=== PATIENT | female | born 1950 | race Caucasian/White ===

== ENCOUNTER 2021-05-13 20:31 | Observation (INO) ==
[2021-05-13] MEDS ORDERED: Aspirin 81 MG TAB.CHEW PO ONE (21:10)
[2021-05-13 21:26] LABS: Basophils % 0.4 %; Eosinophils # 0.2 K/mcL (0.0-0.6); Eosinophils % 2.2 %; Hematocrit 45.6 % (35.3-44.9); Hemoglobin 14.7 g/dL (11.5-15.4); Immature Granulocytes % 0.6 % (0-4); Lymphocytes # 1.9 K/mcL (0.6-4.6); Lymphocytes % 27.5 %; Mean Corpuscular HGB Conc 32.2 g/dL (31.6-35.5); Mean Corpuscular Hemoglobin 28.7 pg (28.0-33.3); Mean Corpuscular Volume 89.1 fL (83.0-100.0); Mean Platelet Volume 11.7 fL (9.4-12.4); Monocytes # 0.6 K/mcL (0.0-1.3); Monocytes % 9.4 %; Platelet Count 164 K/mcL (140-400); Red Blood Count 5.12 M/mcL (3.82-4.97); Red Cell Distribution Width 14.6 % (11.5-14.5); Segmented Neutrophils % 59.9 %; White Blood Count 6.7 K/mcL (4.3-11.1)
[2021-05-13 21:33] LABS: INR 1.3; Prothrombin Time 14.5 Seconds (9.4-12.1)
[2021-05-13 21:45] LABS: BUN/Creatinine Ratio 20 (6-26); Blood Urea Nitrogen 18 mg/dL (8-23); Calcium 9.7 mg/dL (8.6-10.3); Carbon Dioxide 21 mEq/L (23-29); Chloride 108 mEq/L (98-107); Glucose 105 mg/dL (70-105); Osmolality,Calculated 294 (280-300); Potassium 4.1 mEq/L (3.5-5.1); Sodium 141 mEq/L (136-145); eGFR For African Americans > 60 (> 60); eGFR For Non-African Americans > 60 (> 60)
[2021-05-13 21:46] LABS: Troponin I < 0.03 ng/mL (< 0.04)
[2021-05-13] MEDS: DilTIAZem 50 MG/50 ML IV.SOLN IVC SCH (22:01)
[2021-05-13] MEDS ORDERED: *HR* Heparin 5,000 UNIT/ML VIAL IVP PRN ×2 (22:57)
[2021-05-13] MEDS ORDERED: Perflutren Lipid Microsphere 1.3 ML in 0.9 % Sodium Chloride 8.7 ML IVP PRN (22:58)
[2021-05-13] MEDS ORDERED: Heparin 25,000UNIT/250ML 1/2NS 25,000 UNIT/250 ML IV.SOLN IVC SCH (23:00)
[2021-05-13] MEDS ORDERED: Ondansetron 4 MG/2 ML VIAL IVP PRN (23:12)
[2021-05-13] MEDS ORDERED: Naloxone 0.4 MG/ML INJ IVP PRN (23:12)
[2021-05-13] MEDS ORDERED: Acetaminophen 325 MG TABLET PO PRN (23:12)
[2021-05-13] MEDS ORDERED: D5% in Water 1,000 ML IVC PRN (23:16)
[2021-05-13] MEDS ORDERED: *HR* Dextrose 50 % in Water (Vial) 50 ML VIAL IVP PRN (23:16)
[2021-05-13] MEDS ORDERED: Dextrose Gel 15 GM/37.5 ML TUBE PO PRN ×2 (23:16)
[2021-05-13] MEDS ORDERED: Insulin LISPRO 300 UNITS/3 ML VIAL SUBQ SCH (23:30)
[2021-05-13] MEDS ORDERED: *HR* Metoprolol 5 MG/5 ML VIAL IVP ONE (23:32)
[2021-05-13] MEDS ORDERED: Isovue-370 500 ML BOTTLE IVP ONE (23:36)
[2021-05-14 00:16] LABS: Hematocrit 42.5 % (35.3-44.9); Hemoglobin 14.2 g/dL (11.5-15.4); Mean Corpuscular HGB Conc 33.4 g/dL (31.6-35.5); Mean Corpuscular Hemoglobin 29.5 pg (28.0-33.3); Mean Corpuscular Volume 88.2 fL (83.0-100.0); Mean Platelet Volume 11.7 fL (9.4-12.4); Platelet Count 168 K/mcL (140-400); Red Blood Count 4.82 M/mcL (3.82-4.97); Red Cell Distribution Width 14.6 % (11.5-14.5); White Blood Count 6.9 K/mcL (4.3-11.1)
[2021-05-14] MEDS ORDERED: Nitroglycerin 0.4 MG TAB.SUBL SL PRN (00:32)
[2021-05-14] MEDS ORDERED: Morphine Sulfate 2 MG/ML SYRINGE IVP PRN (00:33)
[2021-05-14] MEDS: DilTIAZem 50 MG/50 ML IV.SOLN IVC SCH (03:00)
[2021-05-14 03:40] LABS: Hematocrit 41.7 % (35.3-44.9); Hemoglobin 13.9 g/dL (11.5-15.4); Mean Corpuscular HGB Conc 33.3 g/dL (31.6-35.5); Mean Corpuscular Hemoglobin 29.5 pg (28.0-33.3); Mean Corpuscular Volume 88.5 fL (83.0-100.0); Mean Platelet Volume 12.1 fL (9.4-12.4); Platelet Count 162 K/mcL (140-400); Red Blood Count 4.71 M/mcL (3.82-4.97); Red Cell Distribution Width 14.5 % (11.5-14.5); White Blood Count 6.6 K/mcL (4.3-11.1)
[2021-05-14 04:05] LABS: BUN/Creatinine Ratio 19 (6-26); Blood Urea Nitrogen 15 mg/dL (8-23); Calcium 9.4 mg/dL (8.6-10.3); Carbon Dioxide 21 mEq/L (23-29); Chloride 107 mEq/L (98-107); Chol/HDL Ratio 4.3 (0-4.9); Cholesterol 139 mg/dL (< 200); Glucose 101 mg/dL (70-105); HDL Cholesterol 32 mg/dL (40-59); LDL Cholesterol,Calculated 81 mg/dL (< 100); Magnesium 1.5 mg/dL (1.6-2.6); Osmolality,Calculated 291 (280-300); Potassium 3.7 mEq/L (3.5-5.1); Sodium 140 mEq/L (136-145); Triglycerides 130 mg/dL (< 150); eGFR For African Americans > 60 (> 60); eGFR For Non-African Americans > 60 (> 60)
[2021-05-14 04:10] LABS: Estimated Average Glucose 146 mg/dl; Hemoglobin A1C 6.7 %
[2021-05-14] MEDS ORDERED: *HR* Metoprolol 5 MG/5 ML VIAL IVP ONE ×2 (04:20→09:55)
[2021-05-14] MEDS ORDERED: Melatonin 3 MG TABLET PO ONE (04:20)
[2021-05-14] MEDS: Insulin LISPRO 300 UNITS/3 ML VIAL SUBQ SCH ×2 (07:05→11:27)
[2021-05-14] MEDS ORDERED: amLODIPine 5 MG TABLET PO SCH (09:00)
[2021-05-14] MEDS ORDERED: lisinopriL 20 MG TABLET PO SCH (09:00)
[2021-05-14] MEDS ORDERED: DilTIAZem CD (24hr) 120 MG CAP.ER.24H PO SCH (09:00)
[2021-05-14] MEDS ORDERED: Magnesium Oxide 400 MG TABLET PO SCH (09:00)
[2021-05-14] MEDS ORDERED: Aspirin Enteric Coated 81 MG Tablet PO SCH (09:00)
[2021-05-14] MEDS ORDERED: carvediloL 6.25 MG TABLET PO SCH (09:00)
[2021-05-14 10:59] LABS: INR 1.3; Prothrombin Time 14.9 Seconds (9.4-12.1)
[2021-05-14 15:25] VITALS: BP 115/66; PULSE 86; TEMP 98.2; O2SAT 93
[2021-05-14] MEDS ORDERED: Warfarin perPT PO PRN (18:00)
[2021-05-14] MEDS ORDERED: *HR* Warfarin 4 MG TABLET PO ONE (18:00)
== END 2021-05-14 16:17 | disposition home or self-care (01) ==
LOC: 2ANU 20:31 → EMEROOARM 20:31 → 2ANU 23:28
PROVIDERS: ADMIT Internal Medicine; ATTEND Internal Medicine

== ENCOUNTER 2021-10-02 16:40 | Inpatient (IN) ==
[2021-10-02 18:05] LABS: INR 3.1; Prothrombin Time 34.8 Seconds (9.4-12.1)
[2021-10-02 18:07] LABS: Basophils % 0.2 %; Eosinophils # 0.1 K/mcL (0.0-0.6); Eosinophils % 0.4 %; Hematocrit 43.5 % (35.3-44.9); Immature Granulocytes % 0.5 % (0-4); Lymphocytes # 0.5 K/mcL (0.6-4.6); Lymphocytes % 3.9 %; Mean Corpuscular HGB Conc 32.2 g/dL (31.6-35.5); Mean Corpuscular Hemoglobin 29.2 pg (28.0-33.3); Mean Corpuscular Volume 90.6 fL (83.0-100.0); Mean Platelet Volume 12.4 fL (9.4-12.4); Monocytes # 0.6 K/mcL (0.0-1.3); Monocytes % 5.4 %; Neutrophils # 10.7 K/mcL (1.6-8.9); Platelet Count 144 K/mcL (140-400); Red Cell Distribution Width 14.5 % (11.5-14.5); Segmented Neutrophils % 89.6 %; White Blood Count 11.9 K/mcL (4.3-11.1)
[2021-10-02 18:08] LABS: Activated Partial Thrombo Time 38.2 Seconds (26.0-36.0)
[2021-10-02 18:26] LABS: Alanine Aminotransferase 11 Units/L (7-52); Albumin 4.3 g/dL (3.5-5.7); Albumin/Globulin Ratio 1.6 (1.1-2.2); Alkaline Phosphatase 56 Units/L (34-104); Aspartate Amino Transferase 25 Units/L (13-39); BUN/Creatinine Ratio 16 (6-26); Bilirubin,Indirect 0.6 mg/dL (0.0-1.0); Bilirubin,Total 0.6 mg/dL (0.3-1.0); Blood Urea Nitrogen 15 mg/dL (8-23); Calcium 9.2 mg/dL (8.6-10.3); Carbon Dioxide 25 mEq/L (23-29); Chloride 101 mEq/L (98-107); Ethanol < 10 mg/dL (Less than 10); Globulin 2.7 g/dL (2.4-3.5); Glucose 171 mg/dL (70-105); Osmolality,Calculated 285 (280-300); Sodium 135 mEq/L (136-145); Troponin I 2.51 ng/mL (< 0.04); eGFR For African Americans > 60 (> 60); eGFR For Non-African Americans > 60 (> 60)
[2021-10-02] MEDS ORDERED: Isovue-370 500 ML BOTTLE IVP ONE (20:45)
[2021-10-02] MEDS ORDERED: Ketorolac 30 MG/ML VIAL IM ONE (21:18)
[2021-10-02] MEDS ORDERED: Ketorolac 30 MG/ML VIAL IVP ONE (21:31)
[2021-10-02 21:45] LABS: Bacteria,Urine Few per hpf (None-Few); Bilirubin,Urine Negative (Negative); Blood,Urine Negative (Negative); Clarity,Urine Clear (Clear); Color,Urine Colorless (Yellow); Glucose,Urine (UA) Normal (Normal); Hyaline Casts,Urine Few per lpf (None Seen); Ketones,Urine Negative (Negative); Leukocyte Esterase,Urine Trace (Negative); Nitrite,Urine Negative (Negative); PH,Urine 5.5 pH Units (5.0-8.0); Protein,Urine Negative (Neg-Trace); RBC,Urine 0-3 per hpf (0-3); Specific Gravity,Urine 1.015 (1.010-1.025); Urobilinogen,Urine Normal (Normal)
[2021-10-02 21:56] LABS: Amphetamine Screen,Urine Negative ng/mL (Cutoff=1000); Barbiturate Screen,Urine Negative ng/mL (Cutoff=200); Benzodiazepines Screen,Urine Negative ng/mL (Cutoff=200); Cannabinoid Screen,Urine Negative ng/mL (Cutoff = 50); Cocaine Screen,Urine Negative ng/mL (Cutoff= 300); Opiate Screen,Urine Positive ng/mL (Cutoff=300); Phencyclidine Screen,Urine Negative ng/mL (Cutoff=25)
[2021-10-02 21:56] LABS: Influenza A PCR Negative (Negative); Influenza B PCR Negative (Negative); Resp. Syncytial Virus PCR Negative (Negative); SARS-CoV-2 by PCR (In House) Negative (Negative)
[2021-10-03] MEDS ORDERED: Naloxone 0.4 MG/ML INJ IVP PRN (00:40)
[2021-10-03] MEDS ORDERED: Ondansetron 4 MG/2 ML VIAL IVP PRN (00:40)
[2021-10-03] MEDS ORDERED: Melatonin 3 MG TABLET PO PRN (00:40)
[2021-10-03] MEDS ORDERED: *HR* Heparin 5,000 UNIT/ML VIAL IVP PRN ×2 (00:48)
[2021-10-03] MEDS ORDERED: Heparin 25,000 UNIT/250 ML 25,000 UNIT/250 ML IV.SOLN IVC SCH (01:00)
[2021-10-03] MEDS ORDERED: Perflutren Lipid Microsphere 1.3 ML in 0.9 % Sodium Chloride 8.7 ML IVP PRN ×2 (04:38→13:08)
[2021-10-03] MEDS ORDERED: *HR* Dextrose 50 % in Water (Syg) 50 ML SYRINGE IVP PRN (04:59)
[2021-10-03] MEDS ORDERED: D5% in Water 1,000 ML IVC PRN (04:59)
[2021-10-03] MEDS ORDERED: Dextrose Gel 15 GM/37.5 ML TUBE PO PRN ×2 (04:59)
[2021-10-03 05:22] LABS: Basophils % 0.3 %; Eosinophils # 0.2 K/mcL (0.0-0.6); Eosinophils % 2.2 %; Hemoglobin 13.1 g/dL (11.5-15.4); Immature Granulocytes % 0.5 % (0-4); Lymphocytes # 0.8 K/mcL (0.6-4.6); Lymphocytes % 9.9 %; Mean Corpuscular HGB Conc 32.8 g/dL (31.6-35.5); Mean Corpuscular Hemoglobin 29.6 pg (28.0-33.3); Mean Corpuscular Volume 90.5 fL (83.0-100.0); Mean Platelet Volume 12.1 fL (9.4-12.4); Monocytes # 0.5 K/mcL (0.0-1.3); Monocytes % 6.5 %; Neutrophils # 6.1 K/mcL (1.6-8.9); Platelet Count 111 K/mcL (140-400); Red Blood Count 4.42 M/mcL (3.82-4.97); Red Cell Distribution Width 14.6 % (11.5-14.5); Segmented Neutrophils % 80.6 %; White Blood Count 7.6 K/mcL (4.3-11.1)
[2021-10-03 05:48] LABS: Alanine Aminotransferase 11 Units/L (7-52); Albumin 3.9 g/dL (3.5-5.7); Albumin/Globulin Ratio 1.8 (1.1-2.2); Alkaline Phosphatase 54 Units/L (34-104); Aspartate Amino Transferase 20 Units/L (13-39); BUN/Creatinine Ratio 15 (6-26); Bilirubin,Total 0.6 mg/dL (0.3-1.0); Blood Urea Nitrogen 15 mg/dL (8-23); Calcium 9.1 mg/dL (8.6-10.3); Carbon Dioxide 28 mEq/L (23-29); Chloride 102 mEq/L (98-107); Globulin 2.2 g/dL (2.4-3.5); Glucose 102 mg/dL (70-105); Magnesium 1.7 mg/dL (1.6-2.6); Osmolality,Calculated 287 (280-300); Phosphorous 3.7 mg/dL (2.7-4.5); Potassium 3.7 mEq/L (3.5-5.1); Sodium 138 mEq/L (136-145); Total Protein 6.1 g/dL (6.4-8.9); Troponin I 2.05 ng/mL (< 0.04); eGFR For African Americans > 60 (> 60); eGFR For Non-African Americans 57 (> 60)
[2021-10-03] MEDS: Insulin LISPRO 300 UNITS/3 ML VIAL SUBQ SCH ×3 (05:50→18:05)
[2021-10-03 09:28] LABS: Prothrombin Time 44.1 Seconds (9.4-12.1)
[2021-10-03] MEDS: Acetaminophen 325 MG TABLET PO PRN ×2 (11:43→18:36)
[2021-10-03] MEDS: carvediloL 6.25 MG TABLET PO SCH (18:06)
[2021-10-03] MEDS ORDERED: *HR* LORazepam 0.5 MG TABLET PO PRN (18:12)
[2021-10-03] MEDS: Magnesium Oxide 400 MG TABLET PO SCH (20:08)
[2021-10-03] MEDS ORDERED: *HR* Metoprolol 5 MG/5 ML VIAL IVP ONE ×2 (20:41→21:54)
[2021-10-03] MEDS: DilTIAZem 50 MG/50 ML IV.SOLN IVC SCH (23:35)
[2021-10-04] MEDS ORDERED: DilTIAZem CD (24hr) 120 MG CAP.ER.24H PO SCH ×2 (01:53→09:00)
[2021-10-04] MEDS ORDERED: *HR* Metoprolol 5 MG/5 ML VIAL IVP ONE (02:11)
[2021-10-04] MEDS ORDERED: 0.9 % Sodium Chloride 1,000 ML IV ONE (02:18)
[2021-10-04] MEDS: Insulin LISPRO 300 UNITS/3 ML VIAL SUBQ SCH ×3 (02:54→21:42)
[2021-10-04] MEDS: DilTIAZem 50 MG/50 ML IV.SOLN IVC SCH (02:55)
[2021-10-04] MEDS: Acetaminophen 325 MG TABLET PO PRN ×2 (04:43→17:02)
[2021-10-04 04:57] LABS: Hematocrit 39.6 % (35.3-44.9); Hemoglobin 12.4 g/dL (11.5-15.4); Immature Platelets 7.4 % (1.1-6.1); Mean Corpuscular HGB Conc 31.3 g/dL (31.6-35.5); Mean Corpuscular Hemoglobin 28.9 pg (28.0-33.3); Mean Corpuscular Volume 92.3 fL (83.0-100.0); Mean Platelet Volume 11.9 fL (9.4-12.4); Red Blood Count 4.29 M/mcL (3.82-4.97); Red Cell Distribution Width 14.6 % (11.5-14.5); White Blood Count 5.6 K/mcL (4.3-11.1)
[2021-10-04 05:29] LABS: BUN/Creatinine Ratio 17 (6-26); Blood Urea Nitrogen 13 mg/dL (8-23); Calcium 8.3 mg/dL (8.6-10.3); Carbon Dioxide 28 mEq/L (23-29); Chloride 104 mEq/L (98-107); Glucose 117 mg/dL (70-105); Osmolality,Calculated 287 (280-300); Potassium 3.7 mEq/L (3.5-5.1); Sodium 138 mEq/L (136-145); Troponin I 1.12 ng/mL (< 0.04); eGFR For African Americans > 60 (> 60); eGFR For Non-African Americans > 60 (> 60)
[2021-10-04] MEDS: carvediloL 6.25 MG TABLET PO SCH (08:54)
[2021-10-04] MEDS: lisinopriL 20 MG TABLET PO SCH (08:54)
[2021-10-04] MEDS: Magnesium Oxide 400 MG TABLET PO SCH ×3 (08:55→20:28)
[2021-10-04] MEDS: Furosemide 20 MG TABLET PO SCH (08:55)
[2021-10-04 09:28] LABS: INR 3.4; Prothrombin Time 37.8 Seconds (9.4-12.1)
[2021-10-04] MEDS ORDERED: Insulin LISPRO 300 UNITS/3 ML VIAL SUBQ SCH ×2 (17:00→21:00)
[2021-10-04] MEDS ORDERED: SUMAtriptan 6 MG/0.5 ML SQ PRN (17:06)
[2021-10-04] MEDS ORDERED: Morphine Sulfate 2 MG/ML SYRINGE IVP PRN (17:07)
[2021-10-04] MEDS: Metoprolol 100 MG TABLET PO SCH (20:28)
[2021-10-05] MEDS: *HR* HYDROcodone/Acet 5/325 mg TABLET PO PRN (03:09)
[2021-10-05 04:07] LABS: Hematocrit 37.6 % (35.3-44.9); Hemoglobin 12.1 g/dL (11.5-15.4); Mean Corpuscular HGB Conc 32.2 g/dL (31.6-35.5); Mean Corpuscular Hemoglobin 29.7 pg (28.0-33.3); Mean Corpuscular Volume 92.4 fL (83.0-100.0); Platelet Count 113 K/mcL (140-400); Red Blood Count 4.07 M/mcL (3.82-4.97); Red Cell Distribution Width 14.4 % (11.5-14.5); White Blood Count 5.6 K/mcL (4.3-11.1)
[2021-10-05 04:14] LABS: INR 2.4; Prothrombin Time 26.6 Seconds (9.4-12.1)
[2021-10-05 04:28] LABS: BUN/Creatinine Ratio 20 (6-26); Blood Urea Nitrogen 18 mg/dL (8-23); Calcium 8.5 mg/dL (8.6-10.3); Carbon Dioxide 26 mEq/L (23-29); Chloride 101 mEq/L (98-107); Glucose 141 mg/dL (70-105); Osmolality,Calculated 282 (280-300); Potassium 3.7 mEq/L (3.5-5.1); Sodium 134 mEq/L (136-145); eGFR For African Americans > 60 (> 60); eGFR For Non-African Americans > 60 (> 60)
[2021-10-05] MEDS: Furosemide 20 MG TABLET PO SCH (08:35)
[2021-10-05] MEDS: lisinopriL 20 MG TABLET PO SCH (08:35)
[2021-10-05] MEDS: Metoprolol 100 MG TABLET PO SCH ×2 (08:36→20:03)
[2021-10-05] MEDS: Magnesium Oxide 400 MG TABLET PO SCH ×3 (08:36→20:01)
[2021-10-05] MEDS: Isosorbide MONOnitrate (24 HR) 30 MG TAB.ER.24H PO SCH (13:55)
[2021-10-05] MEDS: Insulin LISPRO 300 UNITS/3 ML VIAL SUBQ SCH (20:17)
[2021-10-06] MEDS: *HR* HYDROcodone/Acet 5/325 mg TABLET PO PRN ×2 (02:18→19:38)
[2021-10-06 05:51] LABS: Hematocrit 35.7 % (35.3-44.9); Hemoglobin 11.4 g/dL (11.5-15.4); Mean Corpuscular HGB Conc 31.9 g/dL (31.6-35.5); Mean Corpuscular Hemoglobin 28.9 pg (28.0-33.3); Mean Corpuscular Volume 90.6 fL (83.0-100.0); Mean Platelet Volume 12.1 fL (9.4-12.4); Platelet Count 116 K/mcL (140-400); Red Blood Count 3.94 M/mcL (3.82-4.97); White Blood Count 5.5 K/mcL (4.3-11.1)
[2021-10-06 05:57] LABS: INR 1.7; Prothrombin Time 19.1 Seconds (9.4-12.1)
[2021-10-06 06:10] LABS: BUN/Creatinine Ratio 15 (6-26); Blood Urea Nitrogen 12 mg/dL (8-23); Calcium 8.6 mg/dL (8.6-10.3); Carbon Dioxide 32 mEq/L (23-29); Chloride 100 mEq/L (98-107); Glucose 122 mg/dL (70-105); Osmolality,Calculated 285 (280-300); Potassium 3.9 mEq/L (3.5-5.1); Sodium 137 mEq/L (136-145); eGFR For African Americans > 60 (> 60); eGFR For Non-African Americans > 60 (> 60)
[2021-10-06] MEDS: Magnesium Oxide 400 MG TABLET PO SCH ×3 (08:35→23:06)
[2021-10-06] MEDS: Isosorbide MONOnitrate (24 HR) 30 MG TAB.ER.24H PO SCH (08:36)
[2021-10-06] MEDS: Aspirin 81 MG TAB.CHEW PO SCH (08:36)
[2021-10-06] MEDS: lisinopriL 20 MG TABLET PO SCH (08:36)
[2021-10-06] MEDS: Metoprolol 100 MG TABLET PO SCH ×2 (08:36→23:07)
[2021-10-06] MEDS: Furosemide 20 MG TABLET PO SCH (08:36)
[2021-10-06] MEDS: Furosemide 20 MG/2 ML VIAL IVP SCH (20:29)
[2021-10-06] MEDS: Insulin LISPRO 300 UNITS/3 ML VIAL SUBQ SCH (23:07)
[2021-10-07] MEDS: Acetaminophen 325 MG TABLET PO PRN (05:51)
[2021-10-07 06:07] LABS: Hematocrit 40.2 % (35.3-44.9); Hemoglobin 13.6 g/dL (11.5-15.4); Immature Platelets 8.6 % (1.1-6.1); Mean Corpuscular HGB Conc 33.8 g/dL (31.6-35.5); Mean Corpuscular Hemoglobin 29.9 pg (28.0-33.3); Mean Corpuscular Volume 88.4 fL (83.0-100.0); Mean Platelet Volume 11.9 fL (9.4-12.4); Red Blood Count 4.55 M/mcL (3.82-4.97); Red Cell Distribution Width 13.9 % (11.5-14.5); White Blood Count 6.5 K/mcL (4.3-11.1)
[2021-10-07 06:11] LABS: INR 1.4; Prothrombin Time 15.2 Seconds (9.4-12.1)
[2021-10-07 06:25] LABS: BUN/Creatinine Ratio 13 (6-26); Blood Urea Nitrogen 11 mg/dL (8-23); Calcium 9.3 mg/dL (8.6-10.3); Carbon Dioxide 32 mEq/L (23-29); Chloride 98 mEq/L (98-107); Glucose 143 mg/dL (70-105); Osmolality,Calculated 290 (280-300); Potassium 3.4 mEq/L (3.5-5.1); Sodium 139 mEq/L (136-145); eGFR For African Americans > 60 (> 60); eGFR For Non-African Americans > 60 (> 60)
[2021-10-07] MEDS: Isosorbide MONOnitrate (24 HR) 30 MG TAB.ER.24H PO SCH (08:29)
[2021-10-07] MEDS: Aspirin 81 MG TAB.CHEW PO SCH (08:29)
[2021-10-07] MEDS: Metoprolol 100 MG TABLET PO SCH ×2 (08:29→21:11)
[2021-10-07] MEDS: Magnesium Oxide 400 MG TABLET PO SCH (08:29)
[2021-10-07] MEDS: lisinopriL 20 MG TABLET PO SCH (08:31)
[2021-10-07] MEDS: Furosemide 20 MG/2 ML VIAL IVP SCH ×2 (09:15→21:11)
[2021-10-07] MEDS ORDERED: Acetaminophen 325 MG TABLET PO PRN (11:50)
[2021-10-07] MEDS: *HR* Enoxaparin 80 MG/0.8 ML SYRINGE SQ SCH ×2 (11:59→21:11)
[2021-10-07 12:05] LABS: Magnesium 1.6 mg/dL (1.6-2.6)
[2021-10-07] MEDS: Cefuroxime PO 500 MG TABLET PO SCH ×2 (16:23→21:10)
[2021-10-07] MEDS ORDERED: *HR* Warfarin 4 MG TABLET PO ONE (18:00)
[2021-10-07] MEDS ORDERED: Warfarin perPT PO PRN (18:00)
[2021-10-07] MEDS: Insulin LISPRO 300 UNITS/3 ML VIAL SUBQ SCH (23:40)
[2021-10-08] MEDS: Cefuroxime PO 500 MG TABLET PO SCH ×2 (07:55→20:35)
[2021-10-08] MEDS: lisinopriL 20 MG TABLET PO SCH (07:55)
[2021-10-08] MEDS: Aspirin 81 MG TAB.CHEW PO SCH (07:55)
[2021-10-08] MEDS: Metoprolol 100 MG TABLET PO SCH ×2 (07:55→21:43)
[2021-10-08] MEDS: Furosemide 20 MG/2 ML VIAL IVP SCH ×2 (07:56→20:36)
[2021-10-08] MEDS: Isosorbide MONOnitrate (24 HR) 30 MG TAB.ER.24H PO SCH (07:56)
[2021-10-08] MEDS ORDERED: *HR* Metoprolol 5 MG/5 ML VIAL IVP ONE ×2 (08:05→20:24)
[2021-10-08] MEDS: *HR* Enoxaparin 80 MG/0.8 ML SYRINGE SQ SCH ×2 (08:19→20:36)
[2021-10-08] MEDS ORDERED: Magnesium Sulfate 1 GM/102 ML PIGGYBACK IVPB ONE ×2 (08:26→09:47)
[2021-10-08 09:03] LABS: Hematocrit 41.3 % (35.3-44.9); Hemoglobin 13.7 g/dL (11.5-15.4); Mean Corpuscular HGB Conc 33.2 g/dL (31.6-35.5); Mean Corpuscular Hemoglobin 29.1 pg (28.0-33.3); Mean Corpuscular Volume 87.9 fL (83.0-100.0); Mean Platelet Volume 12.1 fL (9.4-12.4); Platelet Count 171 K/mcL (140-400); Red Cell Distribution Width 14.3 % (11.5-14.5); White Blood Count 8.4 K/mcL (4.3-11.1)
[2021-10-08 09:07] LABS: INR 1.3; Prothrombin Time 14.5 Seconds (9.4-12.1)
[2021-10-08 09:30] LABS: BUN/Creatinine Ratio 14 (6-26); Blood Urea Nitrogen 11 mg/dL (8-23); Calcium 7.1 mg/dL (8.6-10.3); Carbon Dioxide 28 mEq/L (23-29); Chloride 105 mEq/L (98-107); Glucose 155 mg/dL (70-105); Magnesium 1.3 mg/dL (1.6-2.6); Osmolality,Calculated 293 (280-300); Potassium 2.5 mEq/L (3.5-5.1); Sodium 140 mEq/L (136-145); eGFR For African Americans > 60 (> 60); eGFR For Non-African Americans > 60 (> 60)
[2021-10-08] MEDS ORDERED: Potassium Phosphate 44 MEQ in 0.9 % Sodium Chloride 250 ML IVPB ONE (09:47)
[2021-10-08] MEDS: DilTIAZem 50 MG in 0.9 % Sodium Chloride 40 ML IVC SCH ×4 (10:55→23:31)
[2021-10-08] MEDS: *HR* Metoprolol 5 MG/5 ML VIAL IVP PRN ×2 (14:24→19:45)
[2021-10-08] MEDS ORDERED: *HR* Warfarin 4 MG TABLET PO ONE (18:00)
[2021-10-08 19:01] LABS: Adenovirus Not Detected (Not Detect); Bordetella Pertussis Not Detected (Not Detect); Chlamydophila pneumoniae Not Detected (Not Detect); Coronavirus 229E Not Detected (Not Detect); Coronavirus HKU1 Not Detected (Not Detect); Coronavirus NL63 Not Detected (Not Detect); Coronavirus OC43 Not Detected (Not Detect); Human Metapneumovirus Not Detected (Not Detect); Human Rhinovirus/Enterovirus Not Detected (Not Detect); Influenza A Subtype 2009 H1 Not Detected (Not Detect); Influenza B Not Detected (Not Detect); Mycoplasma pneumoniae Not Detected (Not Detect); Parainfluenza Virus 1 Not Detected (Not Detect); Parainfluenza Virus 2 Not Detected (Not Detect); Parainfluenza Virus 3 Not Detected (Not Detect); Parainfluenza Virus 4 Not Detected (Not Detect); Respiratory Syncytial Virus Not Detected (Not Detect); SARS-CoV-2 Not Detected (Not Detect)
[2021-10-08] MEDS: Insulin LISPRO 300 UNITS/3 ML VIAL SUBQ SCH (20:37)
[2021-10-09 04:08] VITALS: O2SAT 95
[2021-10-09] MEDS: *HR* Metoprolol 5 MG/5 ML VIAL IVP PRN (05:41)
[2021-10-09 07:01] LABS: Hematocrit 41.9 % (35.3-44.9); Hemoglobin 13.6 g/dL (11.5-15.4); Mean Corpuscular HGB Conc 32.5 g/dL (31.6-35.5); Mean Corpuscular Hemoglobin 28.8 pg (28.0-33.3); Mean Corpuscular Volume 88.8 fL (83.0-100.0); Mean Platelet Volume 11.6 fL (9.4-12.4); Platelet Count 172 K/mcL (140-400); Red Blood Count 4.72 M/mcL (3.82-4.97); Red Cell Distribution Width 14.6 % (11.5-14.5); White Blood Count 9.7 K/mcL (4.3-11.1)
[2021-10-09 07:10] LABS: INR 1.4
[2021-10-09] MEDS: Furosemide 20 MG/2 ML VIAL IVP SCH (08:58)
[2021-10-09] MEDS: Isosorbide MONOnitrate (24 HR) 30 MG TAB.ER.24H PO SCH (09:03)
[2021-10-09] MEDS: *HR* Enoxaparin 80 MG/0.8 ML SYRINGE SQ SCH (09:03)
[2021-10-09] MEDS: lisinopriL 20 MG TABLET PO SCH (09:03)
[2021-10-09] MEDS: Aspirin 81 MG TAB.CHEW PO SCH (09:03)
[2021-10-09] MEDS: Metoprolol 100 MG TABLET PO SCH (09:03)
[2021-10-09] MEDS: Cefuroxime PO 500 MG TABLET PO SCH (09:03)
[2021-10-09] MEDS ORDERED: *HR* Digoxin 0.5 MG/2 ML AMPUL IVP ONE ×2 (10:53→15:09)
[2021-10-09] MEDS ORDERED: 0.9 % Sodium Chloride 250 ML IVC SCH (11:30)
[2021-10-09 17:24] VITALS: BP 112/78; PULSE 65; TEMP 97.9
[2021-10-09] MEDS ORDERED: *HR* Warfarin 5 MG TABLET PO ONE (18:00)
[2021-10-09] MEDS ORDERED: *HR* Digoxin 0.5 MG/2 ML AMPUL IVP SCH ×2 (18:00→21:00)
[2021-10-10] MEDS ORDERED: Furosemide 20 MG TABLET PO SCH (09:00)
== END 2021-10-09 18:48 | disposition short-term general hospital (02) | DRG 280 ==
LOC: EMEROOARM 16:40 → 3ANU 16:40 → SUATTDRO 10-03 09:07 → 3ANU 10-07 15:44
PROVIDERS: ADMIT Family Medicine; ATTEND General Practice